=== PATIENT | male | born 1970 | race Caucasian/White ===

== ENCOUNTER → 2017-12-08 | Outpatient (CLI) | payer OTHER | END | disposition home or self-care (01) | LOC: KCIC MRI 14:58 | DX: M50.221 Other cervical disc displacement at C4-C5 level (principal); M48.02 Spinal stenosis, cervical region; Z98.1 Arthrodesis status | CPT/HCPCS: 72141 ==

== ENCOUNTER 2019-12-11 15:16 | Emergency (ER) | payer OTHER ==
--- NOTE | 2019-12-11 15:33 | PHYS DOC ---
Past Medical History Attending Signature I have participated in the care of this patient and I have reviewed and agree with all pertinent clinical information above including history, exam, and recommendations. (MARCO LINK MD) Adult General Chief Complaint Chief Complaint: CONSTIPATION HPI HPI Patient is a 48 year old male patient presenting to the ED today complaining of constipation. Patient reports he has not had a bowel movement for one week. Patient reports he tried using a suppository and mag citrate an hour prior to coming to the ED with no relief. Denies anything specifically making him constipated. He is complaining of generalized mild to moderate abdominal pain described as throbbing and nausea. Denies anything specifically exacerbating or relieving his pain. (GRETCHEN SALAZAR APRN) Review of Systems Review of Systems Constitutional: Denies fever or chills [] Eyes: Denies change in visual acuity, redness, or eye pain [] HENT: Denies nasal congestion or sore throat [] Respiratory: Denies cough or shortness of breath [] Cardiovascular: No additional information not addressed in HPI [] GI: Reports generalized abdominal pain, nausea, constipation, denies vomiting, bloody stools or diarrhea [] : Denies dysuria or hematuria [] Musculoskeletal: Denies back pain or joint pain [] Integument: Denies rash or skin lesions [] Neurologic: Denies headache, focal weakness or sensory changes [] All other systems were reviewed and found to be within normal limits, except as documented in this note. (GRETCHEN SALAZAR APRN) Current Medications Current Medications Current Medications Medications (Trade) Dose Ordered Sig/Denise Start Time Stop Time Status Last Admin Dose Admin Info (CONTRAST GIVEN -- Rx MONITORING) 1 each PRN DAILY PRN 12/11/19 18:00 12/13/19 17:59 Iohexol (Omnipaque 300 Mg/ml) 75 ml 1X ONCE 12/11/19 18:00 12/11/19 18:01 DC 12/11/19 17:57 75 ML Ketorolac Tromethamine (Toradol 15mg Vial) 15 mg 1X ONCE 12/11/19 16:30 12/11/19 16:36 DC 12/11/19 16:48 15 MG Ondansetron HCl (Zofran) 4 mg 1X ONCE 12/11/19 16:30 12/11/19 16:36 DC 12/11/19 16:48 4 MG (MARCO LINK MD) Allergies Allergies Allergies Coded Allergies Type Severity Reaction Last Updated Verified No Known Drug Allergies 12/11/19 No (MARCO LINK MD) Physical Exam Physical Exam Constitutional: Well developed, well nourished, no acute distress, non-toxic ap pearance. [] HENT: Normocephalic, atraumatic, bilateral external ears normal, oropharynx moist, no oral exudates, nose normal. [] Eyes: PERRLA, EOMI, conjunctiva normal, no discharge. [] Neck: Normal range of motion, no tenderness, supple, no stridor. [] Cardiovascular:Heart rate regular rhythm, no murmur [] Lungs & Thorax: Bilateral breath sounds clear to auscultation [] Abdomen: Rounded distended abdomen. Diffuse tenderness throughout the abdomen. Bowel sounds normal, soft, no masses, no pulsatile masses. [] Rectal exam-external rectum appears normal, a ball of bm is palpable in the lower rectum, though my fingers are too short to remove them. Skin: Warm, dry, no erythema, no rash. [] Back: No tenderness, no CVA tenderness. [] Extremities: No tenderness, no cyanosis, no clubbing, ROM intact, no edema. [] Neurologic: Alert and oriented X 3, normal motor function, normal sensory function, no focal deficits noted. [] Psychologic: Affect normal, judgement normal, mood normal. [] (GRETCHEN SALAZAR APRN) Current Patient Data Vital Signs Vital Signs Date Time Temp Pulse Resp B/P (MAP) Pulse Ox O2 Delivery O2 Flow Rate FiO2 12/11/19 15:25 97.5 80 20 156/91 (112) 98 Room Air 97.5 (MARCO LINK MD) Lab Values Laboratory Tests Test 12/11/19 16:20 12/11/19 17:09 White Blood Count 11.9 x10^3/uL (4.0-11.0) H Red Blood Count 4.45 x10^6/uL (4.30-5.70) Hemoglobin 13.5 g/dL (13.0-17.5) Hematocrit 38.6 % (39.0-53.0) L Mean Corpuscular Volume 87 fL (79-100) Mean Corpuscular Hemoglobin 30 pg (25-35) Mean Corpuscular Hemoglobin Concent 35 g/dL (31-37) Red Cell Distribution Width 13.9 % (11.5-14.5) Platelet Count 316 x10^3/uL (140-400) Neutrophils (%) (Auto) 76 % (31-73) H Lymphocytes (%) (Auto) 19 % (24-48) L Monocytes (%) (Auto) 4 % (0-9) Eosinophils (%) (Auto) 1 % (0-3) Basophils (%) (Auto) 1 % (0-3) Neutrophils # (Auto) 9.1 x10^3/uL (1.8-7.7) H Lymphocytes # (Auto) 2.2 x10^3/uL (1.0-4.8) Monocytes # (Auto) 0.5 x10^3/uL (0.0-1.1) Eosinophils # (Auto) 0.1 x10^3/uL (0.0-0.7) Basophils # (Auto) 0.1 x10^3/uL (0.0-0.2) Sodium Level 138 mmol/L (136-145) Potassium Level 4.2 mmol/L (3.5-5.1) Chloride Level 101 mmol/L (98-107) Carbon Dioxide Level 29 mmol/L (21-32) Anion Gap 8 (6-14) Blood Urea Nitrogen 17 mg/dL (8-26) Creatinine 0.8 mg/dL (0.7-1.3) Estimated GFR (Cockcroft-Gault) 102.3 BUN/Creatinine Ratio 21 (6-20) H Glucose Level 117 mg/dL (70-99) H Calcium Level 9.0 mg/dL (8.5-10.1) Total Bilirubin 0.4 mg/dL (0.2-1.0) Aspartate Amino Transferase (AST) 26 U/L (15-37) Alanine Aminotransferase (ALT) 43 U/L (16-63) Alkaline Phosphatase 51 U/L (46-116) Total Protein 7.5 g/dL (6.4-8.2) Albumin 4.0 g/dL (3.4-5.0) Albumin/Globulin Ratio 1.1 (1.0-1.7) Lipase 159 U/L (73-393) Laboratory Tests 12/11/19 16:20 Laboratory Tests 12/11/19 17:09 (MARCO LINK MD) Lab Values Laboratory Tests Test 12/11/19 16:20 12/11/19 17:09 White Blood Count 11.9 x10^3/uL (4.0-11.0) H Red Blood Count 4.45 x10^6/uL (4.30-5.70) Hemoglobin 13.5 g/dL (13.0-17.5) Hematocrit 38.6 % (39.0-53.0) L Mean Corpuscular Volume 87 fL (79-100) Mean Corpuscular Hemoglobin 30 pg (25-35) Mean Corpuscular Hemoglobin Concent 35 g/dL (31-37) Red Cell Distribution Width 13.9 % (11.5-14.5) Platelet Count 316 x10^3/uL (140-400) Neutrophils (%) (Auto) 76 % (31-73) H Lymphocytes (%) (Auto) 19 % (24-48) L Monocytes (%) (Auto) 4 % (0-9) Eosinophils (%) (Auto) 1 % (0-3) Basophils (%) (Auto) 1 % (0-3) Neutrophils # (Auto) 9.1 x10^3/uL (1.8-7.7) H Lymphocytes # (Auto) 2.2 x10^3/uL (1.0-4.8) Monocytes # (Auto) 0.5 x10^3/uL (0.0-1.1) Eosinophils # (Auto) 0.1 x10^3/uL (0.0-0.7) Basophils # (Auto) 0.1 x10^3/uL (0.0-0.2) Sodium Level 138 mmol/L (136-145) Potassium Level 4.2 mmol/L (3.5-5.1) Chloride Level 101 mmol/L (98-107) Carbon Dioxide Level 29 mmol/L (21-32) Anion Gap 8 (6-14) Blood Urea Nitrogen 17 mg/dL (8-26) Creatinine 0.8 mg/dL (0.7-1.3) Estimated GFR (Cockcroft-Gault) 102.3 BUN/Creatinine Ratio 21 (6-20) H Glucose Level 117 mg/dL (70-99) H Calcium Level 9.0 mg/dL (8.5-10.1) Total Bilirubin 0.4 mg/dL (0.2-1.0) Aspartate Amino Transferase (AST) 26 U/L (15-37) Alanine Aminotransferase (ALT) 43 U/L (16-63) Alkaline Phosphatase 51 U/L (46-116) Total Protein 7.5 g/dL (6.4-8.2) Albumin 4.0 g/dL (3.4-5.0) Albumin/Globulin Ratio 1.1 (1.0-1.7) Lipase 159 U/L (73-393) Laboratory Tests 12/11/19 16:20 Laboratory Tests 12/11/19 17:09 (GRETCHEN SALAZAR APRN) EKG EKG [] (GRETCHEN SALAZAR APRN) Radiology/Procedures Radiology/Procedures []PROCEDURE: ABDOMEN SUPINE & UPRIGHT Abdomen supine and upright views 10/11/2020. Reason for exam: Constipation. No free air is seen. Relatively little bowel gas is visible. There is probably some in both large and small bowel. There is no obvious obstruction. No large fecal load is seen. IMPRESSION: Relatively little bowel gas is present, but there is no evidence of obstruction. Electronically signed by: Josh Martinez Jr., MD (12/11/2019 4:25 PM) [facility] [place] DICTATED and SIGNED BY: JOSH MARTINEZ Jr, MD DATE: 12/11/19 1625 PROCEDURE: CT ABD PELV W/ IV CONTRST ONLY CT ABD PELV W/ IV CONTRST ONLY History: Constipation. Abdominal pain. Technique: After the administration of intravenous contrast, CT imaging was performed of the abdomen and pelvis. Multiplanar images are reviewed. Exposure: One or more of the following individualized dose reduction techniques were utilized for this examination: 1. Automated exposure control 2. Adjustment of the mA and/or kV according to patient size 3. Use of iterative reconstruction technique. Comparison: None Findings: Lower chest: No consolidation or pleural effusion. Abdomen and pelvis: Hepatic steatosis. The spleen, adrenal glands, pancreas and gallbladder are unremarkable. Bilateral renal hypodensities. No hydronephrosis. Normal appendix. No evidence of bowel obstruction. Moderate colonic stool. No pathologic lymphadenopathy. Atheromatous calcification throughout the nonaneurysmal abdominal aorta and branch vessels. No ascites. Pelvic contents are unremarkable. Small fat-containing and vocal hernia. Bones: Multilevel lumbar spondylosis. Impression: 1. No acute intra-abdominal or pelvic pathology. 2. Moderate colonic stool. 3. Bilateral renal hypodensities, likely simple and complicated cysts. Ultrasound can further evaluate if clinically indicated. 4. Hepatic steatosis. Electronically signed by: Ronny Kern DO (12/11/2019 6:22 PM) [id number] DICTATED and SIGNED BY: RONNY KERN DO DATE: 12/11/191821 (GRETCHEN SALAZAR APRN) Course & Med Decision Making Course & Med Decision Making Pertinent Labs and Imaging studies reviewed. (See chart for details) This is a 48-year-old male patient presenting to the ED today complaining of constipation, he reports no bowel movement for one week. CBC with a WBC of 11 point, CMP with no acute findings. CT of the abdomen and pelvic was noted for moderate colonic stool. Milk of molasses enema performed. Discussed constipation management and prevention at home. (GRETCHEN SALAZAR APRN) Dragon Disclaimer Dragon Disclaimer This electronic medical record was generated, in whole or in part, using a voice recognition dictation system. (GRETCHEN SALAZAR APRN) Departure Departure Impression: Primary Impression: Constipation Additional Impression: Renal cyst Disposition: HOME, SELF-CARE Condition: STABLE Referrals: UNKNOWN PCP NAME (PCP) GILSON ELISE MD follow up in 1-2 weeks Patient Instructions: Constipation, Adult Additional Instructions: You have a couple cysts showing up on your CAT scan. This needs to be followed up with the primary care doctor. For constipation please increase your dietary fiber intake as well as a water intake. Consider increasing your activity level/exercise. Consider using MiraLAX every day it may help prevent/reduce constipation episodes. [place] fluids. Problem Qualifiers Primary Impression: Constipation Constipation type: unspecified constipation type Qualified Codes: K59.00 - Constipation, unspecified GRETCHEN SALAZAR APRN Dec 11, 2019 15:33 MARCO LINK MD Dec 11, 2019 20:24
--- NOTE | 2019-12-11 16:28 | RAD ---
Abdomen supine and upright views 10/11/2020. Reason for exam: Constipation. No free air is seen. Relatively little bowel gas is visible. There is probably some in both large and small bowel. There is no obvious obstruction. No large fecal load is seen. IMPRESSION: Relatively little bowel gas is present, but there is no evidence of obstruction. Electronically signed by: Brent Martinez Jr., MD (12/11/2019 4:25 PM) [facility] [place]
[2019-12-11] MEDS ORDERED: KETOROLAC 15 MG/ML VIAL. IVP ONE (16:30)
[2019-12-11] MEDS ORDERED: ONDANSETRON PF 4 MG/2 ML VIAL. IV ONE (16:30)
[2019-12-11 16:53] LABS: BASO # 0.1 x10^3/uL (0.0-0.2); BASO % 1 % (0-3); EOS # 0.1 x10^3/uL (0.0-0.7); EOS % 1 % (0-3); HEMATOCRIT 38.6 % (39.0-53.0); HEMOGLOBIN 13.5 g/dL (13.0-17.5); LYMPH # 2.2 x10^3/uL (1.0-4.8); LYMPH % 19 % (24-48); MEAN CORPUSCULAR HEMOGLOBIN 30 pg (25-35); MEAN CORPUSCULAR HGB CONC 35 g/dL (31-37); MEAN CORPUSCULAR VOLUME 87 fL (79-100); MONO # 0.5 x10^3/uL (0.0-1.1); MONO % 4 % (0-9); NEUT # 9.1 x10^3/uL (1.8-7.7); NEUT % 76 % (31-73); PLATELET COUNT 316 x10^3/uL (140-400); RED BLOOD COUNT 4.45 x10^6/uL (4.30-5.70); RED CELL DISTRIBUTION WIDTH 13.9 % (11.5-14.5); WHITE BLOOD COUNT 11.9 x10^3/uL (4.0-11.0)
[2019-12-11 17:28] LABS: CREATININE 0.8 mg/dL (0.7-1.3); GFR 102.3; POTASSIUM 4.2 mmol/L (3.5-5.1)
[2019-12-11 17:34] LABS: ALBUMIN/GLOBULIN RATIO 1.1 (1.0-1.7); TOTAL BILIRUBIN 0.4 mg/dL (0.2-1.0); TOTAL PROTEIN 7.5 g/dL (6.4-8.2)
[2019-12-11] MEDS ORDERED: IOHEXOL 300 MG/ML 100ML VIAL. IV ONE (18:00)
[2019-12-11] MEDS ORDERED: CONTRAST GIVEN. MC PRN (18:00)
--- NOTE | 2019-12-11 18:25 | RAD ---
CT ABD PELV W/ IV CONTRST ONLY History: Constipation. Abdominal pain. Technique: After the administration of intravenous contrast, CT imaging was performed of the abdomen and pelvis. Multiplanar images are reviewed. Exposure: One or more of the following individualized dose reduction techniques were utilized for this examination: 1. Automated exposure control 2. Adjustment of the mA and/or kV according to patient size 3. Use of iterative reconstruction technique. Comparison: None Findings: Lower chest: No consolidation or pleural effusion. Abdomen and pelvis: Hepatic steatosis. The spleen, adrenal glands, pancreas and gallbladder are unremarkable. Bilateral renal hypodensities. No hydronephrosis. Normal appendix. No evidence of bowel obstruction. Moderate colonic stool. No pathologic lymphadenopathy. Atheromatous calcification throughout the nonaneurysmal abdominal aorta and branch vessels. No ascites. Pelvic contents are unremarkable. Small fat-containing and vocal hernia. Bones: Multilevel lumbar spondylosis. Impression: 1. No acute intra-abdominal or pelvic pathology. 2. Moderate colonic stool. 3. Bilateral renal hypodensities, likely simple and complicated cysts. Ultrasound can further evaluate if clinically indicated. 4. Hepatic steatosis. Electronically signed by: Ronny Kern DO (12/11/2019 6:22 PM) [id number]
[2019-12-11 20:23] VITALS: BP 141/85
== END 2019-12-11 19:50 | disposition home or self-care (01) ==
LOC: ER 15:16
DX: N28.1 Cyst of kidney, acquired (principal); K59.00 Constipation, unspecified
CPT/HCPCS: 36415; 74021; 74177; 80053; 83690; 85025; 96374; 96375; 99285; J1885; J2405; Q9967

== ENCOUNTER → 2021-04-25 | Outpatient (CLI) | payer OTHER ==
--- NOTE | 2021-04-25 09:31 | RAD ---
EXAM: Bilateral knees, 2 views. HISTORY: Pain. COMPARISON: None. FINDINGS: 2 views of both knees are obtained. There is mild medial compartment joint space narrowing of the right knee, a component of which is likely projectional. There is minimal bilateral patellofem oral compartment spurring. There is no fracture, dislocation or subluxation. There is no joint effusi on. IMPRESSION: 1. 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 2. No acute osseous finding. Electronically signed by: Aubree Acuna MD (04/25/2021 9:29 AM) [id number]
== END ==
LOC: RAD 08:52
PROVIDERS: ATTEND Anesthesiology Pain Medicine
DX: M17.0 Bilateral primary osteoarthritis of knee (principal); M76.892 Other specified enthesopathies of left lower limb, excluding foot; M76.891 Other specified enthesopathies of right lower limb, excluding foot
CPT/HCPCS: 73560-50